=== PATIENT | male | born 1965 | race Caucasian/White ===

== ENCOUNTER 2020-01-12 10:11 | Emergency (ER) | payer MEDICAID ==
[~2020-01-12] VITALS: Ht 167.6 cm; Wt 100.0 kg
[2020-01-12 10:14] VITALS: BP 108/68
[2020-01-12] MEDS ORDERED: ACETAMINOPHEN 325MG TABLET PO ONE (10:45)
[2020-01-12] MEDS ORDERED: ACETAMINOPHEN 500MG TABLET PO NR (10:45)
== END 2020-01-12 11:59 | disposition home or self-care (01) ==
LOC: ER 10:11
DX: U07.1 COVID-19 (principal); R50.9 Fever, unspecified; E11.9 Type 2 diabetes mellitus without complications
CPT/HCPCS: 71045; 99284; C9803; U0003